=== PATIENT | female | born 1975 | race African-American/Black ===

== ENCOUNTER 2024-02-07 19:15 | Emergency (ER) | payer OTHER, SELFPAY ==
--- NOTE | ~2024-02-07 | XR_ITS ---
EXAMINATION: XR ABDOMEN KUB CLINICAL INDICATION: Abdominal discomfort. History of constipation. COMPARISON: None available. TECHNIQUE: AP view of the abdomen. FINDINGS: The bowel gas pattern is normal with no evidence of ileus or obstruction. There is retained stool within the right, transverse and descending colon. No unusual soft tissue calcifications are noted. The bones are unremarkable. XR/XR KUB IMPRESSION: 1. Nonobstructive bowel gas pattern. 2. Retained stool within the colon.
[2024-02-07 19:37] VITALS: BP 148/100; PULSE 89; RESP 18; TEMP 36.8; O2SAT 100; BMI 26.9
--- NOTE | 2024-02-07 19:39 | ED_ITS ---
[facility] - General Adult General Chief complaint: Chest Pain Stated complaint: chest,abd pain Time Seen by Provider: 02/07/24 22:16 Source: patient, family and educational interpreter Mode of arrival: ambulatory History of Present Illness ED Provider: Dr Funk [facility] narrative: This is a 48-year-old female without past medical history who presents with 2 weeks of epigastric/substernal chest discomfort that she describes as sharp in nature and whenever strong she feels short of breath and on my interview denied any sore throat/cough/fever/chills and denies any GI or symptoms. However it is noted that in the triage note patient described sore throat. Related Data Allergies Allergy/AdvReac Type Severity Reaction Status Date / Time No Known Allergies Allergy Verified 02/07/24 19:43 Review of Systems 2 Review of Systems: Pertinent positives and negatives as stated in [facility] Past Medical History Source: nursing notes reviewed Social History Social History Smoked in Last 30 Days: No Use of substances other than those prescribed or required for medical reasons: No Advance Directives: No Advance Directives Information Provided: Yes Do you have a plan to hurt others: No Plan Patient : No Physical Exam ED Vital Signs: Vital Signs - 24 hr 02/07/24 19:37 02/07/24 22:03 Temperature 98.3 F 97.8 F Pulse Rate 89 75 Respiratory Rate 18 20 Blood Pressure 148/100 H 147/85 H Pulse Oximetry 100 99 Oxygen Delivery Method Room Air Room Air BMI result Body Mass Index 26.9 VITAL SIGNS: Reviewed. GENERAL: Well developed, well nourished, in no acute distress. HEAD: Normocephalic/atraumatic EYES: PERRLA, EOMI EARS: Ext canals without abnormality, TMs non-bulging and non-erythematous NOSE: Nares patent bilateral OROPHARYNX: no oral lesions noted, posterior pharynx clear and non-erythematous without noted tonsillar enlargement/erythema/exudates NECK: Supple, no adenopathy LUNGS: Normal breath sounds. No adventitious sounds or accessory muscle use. SpO2<99> CARDIOVASCULAR: Regular rate and rhythm without noted murmurs ABDOMEN: Soft, epigastric discomfort, non-distended with bowel sounds. MUSCULOSKELETAL: No tenderness, deformities, or effusions noted on gross inspection. EXTREMITIES: No cyanosis, clubbing or edema. SKIN: Inspection of the skin reveals no rashes NEUROLOGIC: Alert and oriented x 4. Strength and sensation to light touch were grossly intact x 4. Course Course Course Narrative: This is a rapid medical exam completed by Rk ROLAND: Additional HPI, ROS, PE not included below will be deferred to primary provider. c/o epigastric pain radiating into the sternum with sore throat for greater than 2 weeks. Symptoms getting worse. Symptoms exacerbated by eating. Feels like her torso feels warm Creole speaking Medications Administered Discontinued Medications Generic Name Dose Route Start Last Admin Trade Name Freq PRN Reason Stop Dose Admin Acetaminophen 975 mg 02/08/24 00:47 02/08/24 00:50 Acetaminophen 325 Mg Tablet PO 02/08/24 00:48 975 mg ONCE ONE Administration Al Hydroxide/Mg Hydroxide 30 ml 02/07/24 23:00 02/07/24 23:08 Magnesium Hydrox/Alum Hydrox 30 Ml Oral.Susp PO 02/07/24 23:01 30 ml ONCE ONE Administration Lidocaine HCl 10 ml 02/07/24 23:00 02/07/24 23:08 Lidocaine Hcl Viscous 2 % 15 Ml Solution MUCOUS MEM 02/07/24 23:01 10 ml ONCE ONE Administration Potassium Chloride 60 meq 02/07/24 23:47 02/08/24 00:51 Potassium Chloride Er 20 Meq Tab.Er.Prt PO 02/07/24 23:48 60 meq ONCE ONE Administration Sucralfate 1 gm 02/07/24 23:00 02/07/24 23:08 Sucralfate Oral Suspension 1 Gm/10 Ml Oral.Susp PO 02/07/24 23:01 1 gm ONCE ONE Administration Medical Decision Making Medical Decision Making [facility] Narrative: 48-year-old female with history and clinical presentation, DDX: GERD/acid reflux/gastritis, lower clinical suspicion for infectious etiology such as cholecystitis, no history to suggest pancreatitis, and no suspicion for ACS or pneumonia. I reviewed all investigations and hematologic indices are negative for leukocytosis/anemia/thrombocytopenia. Chemistry indices demonstrate a low potassium that was repleted with 60 mEq of potassium chloride but no SHAWNA or liver enzyme deranged and high sensitivity troponin is undetectable. Urinalysis is negative for UTI or hematuria and viral testing is negative for influenza/RSV/COVID-19/strep pharyngitis. Patient treated with GI cocktail and Carafate, KUB does not demonstrate air- fluid levels. Radiology's reading the KUB as nonobstructive bowel-gas pattern with retained stool. On re-evaluation patient is feeling somewhat improved she is encouraged to go home and use [id number] MiraLax. She does have short follow-up with Dr. Holloway this coming week. Differential Diagnosis Differential Diagnoses: The differential diagnosis associated with the presentation includes Please see the discussion Admission/Observation Consideration of admission/observation: Escalation of care including admission/observation considered Please see the discussion above Lab Data MDM Lab Attestation statement: I reviewed the patient's lab results. Please see the discussion 02/07/24 20:01 02/07/24 20:01 Labs: Lab Results 02/07/24 02/07/24 02/07/24 Range/Units 20:01 22:10 22:22 WBC 8.1 (4.8-10.8) X10*3/uL RBC 4.40 (4.20-5.50) X10*6/uL Hgb 12.1 (12.0-16.0) g/dl Hct 37.4 (37.0-47.0) % MCV 85.0 (80.0-98.0) fL MCH 27.5 (27.0-33.0) pg MCHC 32.4 (31.0-35.0) g/dl RDW 13.2 (11.0-16.0) % Plt Count 283 (160-400) X10*3/uL MPV 10.0 (9.4-12.3) fL Immature Gran % (Auto) 0.2 (0.0-0.4) % Neut % (Auto) 44.9 L (45-73) % Lymph % (Auto) 45.8 H (20-40) % Wheeler % (Auto) 7.5 (2-11) % Eos % (Auto) 1.1 (0-4) % Baso % (Auto) 0.5 (0-2) % Lymph # (Auto) 3.7 (1.2-4.9) X10*3/uL Wheeler # (Auto) 0.6 (0.1-1.2) X10*3/uL Eos # (Auto) 0.1 (0.0-0.4) X10*3/uL Baso # (Auto) 0.0 (0.0-0.2) X10*3/uL Abs Immat Gran (auto) 0.02 (0.00-0.03) X10*3/uL Absolute Neuts (auto) 3.6 (2.0-8.3) x10*3/uL Absolute Nucleated RBC 0.000 (0.0-0.012) X10*3/uL Nucleated RBC % (auto) 0.0 (0.0-0.2) /100WBC Sodium 142 (135-145) mmol/L Potassium 3.0 L (3.3-5.1) mmol/L Chloride 110 H (96-108) mmol/L Carbon Dioxide 25 (22-29) mmol/L Anion Gap 10 L (12-20) BUN 4 L (9-16) mg/dL Creatinine 0.73 (0.5-1.4) mg/dL Estim Creat Clear Calc 95.8 Estimated GFR > 60 Random Glucose 153 H (60-115) mg/dL Calcium 9.8 (8.4-10.2) mg/dL Total Bilirubin 0.4 (0.0-1.0) mg/dL AST 14 (5-31) U/L ALT 8 (0-31) U/L Alkaline Phosphatase 79 (39-117) U/L Troponin I High Sens < 2.7 (<3.5-17.0) ng/L Total Protein 7.6 (6.5-8.0) g/dL Albumin 4.4 (3.5-5.0) g/dL Urine Color Yellow Urine Appearance Clear Urine pH 7.0 (5.0-9.0) Ur Specific [place] <= 1.005 (1.005-1.025) Urine Protein Negative (Neg-Trace) mg/dL Urine Glucose (UA) Negative (Negative) mg/dL Urine Ketones Negative (Negative) mg/dL Urine Blood Negative (Negative) Urine Nitrite Negative (Negative) Ur Leukocyte Esterase Negative (Negative) Urine RBC 0-2 (0-2) /HPF Urine WBC 0-5 (0-5) /HPF Ur Squamous Epith Cells 0-2 (0-2) /HPF Urine Bacteria None Seen (None Seen) Hyaline Casts 0-2 (0-2) /LPF Influenza Type A (PCR) NEGATIVE (Negative) Influenza Type B (PCR) NEGATIVE (Negative) RSV RNA Qual (PCR) NEGATIVE (Negative) SARS-CoV-2 RNA (RT-PCR) NEGATIVE (Negative) S. pyogenes GrpA JOSEPH Negative (Negative) Independent Interpretation I performed an independent interpretation of an: EKG Interpretation: Sinus rhythm, HR-99, no STEMI, [place]/QRS/QTC is within normal limits. Radiology Impression Discussion of test interpretation with radiology: I have reviewed the radiologist's reading. Radiologist Impression: Please see the discussion above Critical Care Time Critical Care Time Critical Care Time: Yes Total Critical Care Time: 45 Attestation: I personally attest to this time spent taking care of the patient. Discharge Plan Discharge Clinical Impression: Atypical chest pain, Hypokalemia, Gastritis Instructions: Hypokalemia (ED), Potassium Content of Foods List (ED), Constipation (ED) Additional Instructions: Follow-up with Dr. Holloway as scheduled. Recommend [id number] MiraLax as needed for constipation. Recommend Pepcid, this is available [id number], 20 mg, every morning. Return to the emergency room for any worsening of symptoms. Print Language: Bruna Martin
--- NOTE | 2024-02-07 19:41 | ECG_ITS ---
Test Reason : EPIGASTRIC PAIN Blood Pressure : / mmHG Vent. Rate : 099 BPM Atrial Rate : 099 BPM P-R Int : 204 ms QRS Dur : 086 ms QT Int : 348 ms P-R-T Axes : 061 025 030 degrees QTc Int : 446 ms Normal sinus rhythm Possible Left atrial enlargement Borderline ECG No previous ECGs available Referred By: Ania Florian Electronically Signed By:Juan Antonio Bella
[2024-02-07 20:03] LABS: MANUAL DIFF FLAG NO
[2024-02-07 20:04] LABS: Basophils Percent Auto 0.5 % (0-2); Eosinophils Absolute Auto 0.1 X10*3/uL (0.0-0.4); Eosinophils Percent Auto 1.1 % (0-4); Hematocrit 37.4 % (37.0-47.0); Hemoglobin 12.1 g/dl (12.0-16.0); Imm Gran Abs Auto 0.02 X10*3/uL (0.00-0.03); Imm Gran Pct Auto 0.2 % (0.0-0.4); Lymphocytes Absolute Auto 3.7 X10*3/uL (1.2-4.9); Lymphocytes Percent Auto 45.8 % (20-40); Mean Corpuscular HGB Conc 32.4 g/dl (31.0-35.0); Mean Corpuscular Hemoglobin 27.5 pg (27.0-33.0); Monocytes Absolute Auto 0.6 X10*3/uL (0.1-1.2); Monocytes Percent Auto 7.5 % (2-11); Neutrophils Absolute Auto 3.6 x10*3/uL (2.0-8.3); Neutrophils Percent Auto 44.9 % (45-73); Platelet Count 283 X10*3/uL (160-400); Red Cell Distribution Width 13.2 % (11.0-16.0); White Blood Count 8.1 X10*3/uL (4.8-10.8)
[2024-02-07 20:31] LABS: Alanine Aminotransferase 8 U/L (0-31); Albumin Level 4.4 g/dL (3.5-5.0); Alkaline Phosphatase 79 U/L (39-117); Anion Gap 10 (12-20); Aspartate Amino Transferase 14 U/L (5-31); Bilirubin Total 0.4 mg/dL (0.0-1.0); Blood Urea Nitrogen 4 mg/dL (9-16); Calcium 9.8 mg/dL (8.4-10.2); Carbon Dioxide 25 mmol/L (22-29); Chloride 110 mmol/L (96-108); Creatinine Clr Calc Pharmacy 95.8; Estimated Glomerular Filt Rate > 60; Glucose Random 153 mg/dL (60-115); Sodium 142 mmol/L (135-145); Total Protein 7.6 g/dL (6.5-8.0)
[2024-02-07 20:42] LABS: Troponin-I High Sensitivity < 2.7 ng/L (<3.5-17.0)
[2024-02-07 22:03] VITALS: BP 147/85; PULSE 75; RESP 20; TEMP 36.6; O2SAT 99
--- NOTE | 2024-02-07 22:14 | PC.NURSE ---
pt from home a&ox4, respirations even and unlabored. pt reporting x2 weeks of epigastric pain radiating into mid chest, reports increasing shortness of breath and throat pain. pt throat appears to be not red and pt is able to swallow. reports reduced food and water intake due to pain. pt normal sinus on tele 65-69bpm. pt swabbed at this time.
[2024-02-07 22:28] LABS: Appearance Urine Clear; Color Urine Yellow; Glucose Urine UA Negative (Negative); Leukocyte Esterase Urine Negative (Negative); Nitrite Urine Negative (Negative); Specific Gravity - Urine <= 1.005 (1.005-1.025); Urine Blood Negative (Negative); Urine Ketones Negative (Negative); Urine Protein Negative (Neg-Trace)
[2024-02-07 22:30] LABS: Bacteria Urine None Seen (None Seen); Hyaline Casts Urine 0-2 /LPF (0-2); RBC Urine 0-2 /HPF (0-2); Squamous Epithelial Cell Urine 0-2 /HPF (0-2); WBC Urine 0-5 /HPF (0-5)
[2024-02-07 22:36] LABS: IDNOW Serial# 6674DD1D; Strep A Nucleic Acid Negative (Negative)
[2024-02-07 22:59] LABS: Influenza A PCR NEGATIVE (Negative); Influenza B PCR NEGATIVE (Negative); Resp Syncy Virus RNA Qual PCR NEGATIVE (Negative); SARS COV2 PCR INHOUSE NEGATIVE (Negative)
[2024-02-07] MEDS: Lidocaine HCl Viscous 2 % 15 ML SOLUTION 10 ML MUCOUS MEM (23:08)
[2024-02-07] MEDS: Magnesium Hydrox/Alum Hydrox 30 ML ORAL.SUSP PO (23:08)
[2024-02-07] MEDS: Sucralfate Oral Suspension 1 GM/10 ML ORAL.SUSP PO (23:08)
[2024-02-08] MEDS: Acetaminophen 325 MG TABLET 975 MG PO (00:50)
[2024-02-08] MEDS: Potassium Chloride ER 20 MEQ TAB.ER.PRT 60 MEQ PO (00:51)
--- NOTE | 2024-02-08 00:57 | PC.NURSE ---
pt mediated per mar, tolerated well with water.
[2024-02-08 01:28] VITALS: BP 146/86; PULSE 75; RESP 18; TEMP 36.7; O2SAT 98
== END 2024-02-08 01:32 | disposition home or self-care (01) ==
PROVIDERS: Nurse Practitioner Family; Emergency Provider Student in an Organized Health Care Education/Training Program; PCP Internal Medicine
DX: R07.89 Other chest pain (principal); R10.13 Epigastric pain; E87.6 Hypokalemia; K29.70 Gastritis, unspecified, without bleeding; Z03.818 Encounter for observation for suspected exposure to other biological agents ruled out; Z79.899 Other long term (current) drug therapy
CPT/HCPCS: 0241U; 36415; 74018; 80053; 81001; 84484; 85025; 87651; 93005; 99283; 99285

== ENCOUNTER → 2024-02-07 19:41 | Outpatient (BNV) | payer OTHER, SELFPAY | PROVIDERS: Emergency Provider Student in an Organized Health Care Education/Training Program; PCP Internal Medicine; Visit Provider Internal Medicine Cardiovascular Disease | DX: R10.13 Epigastric pain (principal) | CPT/HCPCS: 93010 ==

== ENCOUNTER 2025-04-18 11:03 | Outpatient (AMB) | payer OTHER, SELFPAY ==
[2025-04-18 12:24] VITALS: BP 108/80; PULSE 69; RESP 16; TEMP 36.8; O2SAT 96; BMI 27.0
--- NOTE | 2025-04-18 12:24 | MHC.OFFWIV ---
Intake Vital Signs 04/18/25 12:24 Height 5 ft 6 in Weight 167 lb BMI 27.0 BP 108/80 Blood Pressure Location Lt brachial Position Sitting Respiration 16 Pulse 69 Pulse Source Pulse Oximeter Temp 98.2 F Temp Source Oral Pulse Oximetry (%) 96 Oxygen Delivery Method Room Air Intake Visit Reasons: EP-Chest pain, sore throat Intake Note: Pt is here today c/o chest pain x1mo ago & c/o acid reflux Patient Tobacco Use Status: Never used Tobacco Allergies No Known Allergies Allergy (Verified 04/18/25 12:25) HPI HPI Comments History of Present Illness Details History - The patient is a 49-year-old female presenting with chest pain radiating to the throat. - The sharp, central chest pain radiates to her throat has been occurring intermittently for a month, with a similar episode last year diagnosed and treated as reflux. - Denies abdominal pain, bloating or excessive burping. - She does not eat alcohol. - Previous treatment included a GI cocktail and potassium, with negative cardiac enzymes. - The patient reports occasional constipation and suspects hemorrhoids due to straining. - An ovarian cyst is suspected, though the patient does not currently follow with an COMPLETION MANAGER. Physical Exam General: Cooperative, healthy appearing, comfortable, no acute distress and well developed Orientation: Patient oriented x3 Limitations: No limitations Head: Normal to inspection Ears: Hearing grossly normal bilaterally Nose: Normal External nose present Face and sinus: Normal facial exam Mouth: normal, moist oral mucosa Eyes: Appearance normal, both eyes and all related structures Neck: Normal visual inspection and Yes full ROM Respiratory: Normal respiratory effort and able to speak in complete sentences. Skin: no rashes or lesions noted Neuro: Patient oriented x3 Extremities: moving all extremities normally [facility] Social History Patient Tobacco Use Status: Never used Tobacco Review of Systems Const All systems reviewed & are unremarkable except as noted in HPI and below Physical Exam Vital Signs: Last Vital Signs Temp 98.2 F 04/18/25 12:24 Pulse 69 04/18/25 12:24 Resp 16 04/18/25 12:24 BP 108/80 04/18/25 12:24 Pulse Ox 96 04/18/25 12:24 Oxygen Delivery Method Room Air 04/18/25 12:24 BMI result Body Mass Index 27.0 Assessment & Plan Assessment & Plan (1) GERD (gastroesophageal reflux disease): Code(s): K21.9 - Gastro-esophageal reflux disease without esophagitis Qualifiers: Esophagitis bleeding: without hemorrhage Plan: Plan Patient was informed and verbally consented to the use of an ambient scribe for clinic note documentation during this visit Gastroesophageal Reflux Disease (Gerd) - Initiate omeprazole 20 mg daily for one month, starting with two pills daily for the first week, then reducing to one pill daily. - Advise dietary modifications to avoid high-acid foods such as tomatoes, spicy foods, and carbonated beverages. - Needs to establish care with a new PCP, gave information on PCP's at [address] [place] [address] - Follow-up appointment recommended with new PCP if symptoms persist or worsen. Medications: New omeprazole take 30-60 minutes prior to meals 20 mg PO QAM 30 caps 0RF Coding Level of Care Code Est Pt Level 3 (96151) Diagnoses GERD (gastroesophageal reflux disease) K21.9 Esophagitis bleeding: without hemorrhage
== END 2025-04-18 13:05 | disposition home or self-care (01) ==
PROVIDERS: PCP Internal Medicine; Visit Provider Physician Assistant
DX: K21.9 Gastro-esophageal reflux disease without esophagitis (principal)

== ENCOUNTER → 2025-04-18 11:03 | Outpatient (BNVA) | payer OTHER, SELFPAY | PROVIDERS: PCP Internal Medicine; Visit Provider Physician Assistant | DX: K21.9 Gastro-esophageal reflux disease without esophagitis (principal); R07.9 Chest pain, unspecified | CPT/HCPCS: 99212 ==

== ENCOUNTER 2025-04-30 14:10 | Outpatient (AMB) | payer OTHER, SELFPAY ==
[2025-04-30 14:13] VITALS: BP 120/76; PULSE 91; TEMP 36.2; O2SAT 99; BMI 27.1
--- NOTE | 2025-04-30 14:13 | MHC.PC.OV ---
Vital Signs 04/30/25 14:13 Height 5 ft 6 in Weight 168 lb BMI 27.1 BP 120/76 Blood Pressure Location Rt brachial Position Sitting Pulse 91 Pulse Source Pulse Oximeter Temp 97.1 F Temp Source Temporal Artery Scan Pulse Oximetry (%) 99 Oxygen Delivery Method Room Air Intake Visit Reasons: New Patient Assistant [employer] Required: No Accompanied by: Daughter Allergies No Known Allergies Allergy (Verified 04/30/25 14:16) Medication List - Last Reconciled 04/30/25 by DEVON Bah pantoprazole 20 mg PO BID sennosides (Natural Senna Laxative) 17.2 mg (2 x 8.6 mg) PO BEDTIME Tobacco use date assessed: 04/30/25 Dental Screening Dental Screen Date: 04/30/25 Did you have a dental visit in the last 12 months?: Yes Did you have a dental problem in the last 6 months where you did not have access to dental care?: No HPI HPI Comments History of Present Illness Details The patient is a 49-year-old female presenting with gastrointestinal discomfort and visual disturbances. The gastrointestinal discomfort began approximately one week ago and is characterized by pain that worsens with movement rather than eating. She was seen at on 04/18 The patient has been taking omeprazole for a week with minimal improvement. Additionally, the patient experiences constipation, which is described as difficult bowel movements without any current treatment. The patient also reports visual disturbances, including difficulty reading and intermittent itching of the eyes, which started about a week ago. These symptoms occur on and off and are accompanied by a sensation of warmth in the eyes. [facility] Medical History (Updated 05/03/25 @ 09:20 by DEVON Bah) Decreased visual acuity Health care maintenance RUQ abdominal pain Family History (Updated 04/30/25 @ 14:17 by Karla Gallegos MA) Mother No problems noted. Father No problems noted. Social History Housing: Apartment Patient Tobacco Use Status: Never used Tobacco e-Cigarette/Vaping Use: Never Used service: No Current occupational status: unemployed Cognitive needs: No Hearing needs: No Vision needs: No Questionnaire PHQ-9 Over the last 2 weeks, how often have you been bothered by any of the following problems? 1. Little interest or pleasure in doing things: not at all 2. Feeling down, depressed, or hopeless: not at all 3. Trouble falling or staying asleep, or sleeping too much: not at all 4. Feeling tired or having little energy: not at all 5. Poor appetite or overeating: not at all 6. Feeling bad about yourself - or that you are a failure or have let yourself or your family down: not at all 7. Trouble concentrating on things, such as reading the newspaper or watching television: not at all 8. Moving or speaking so slowly that other people could have noticed. Or the opposite - being so fidgety or restless that you have been moving around a lot more than usual: not at all 9. Thoughts that you would be better off or of hurting yourself in some way: not at all Total score: 0 Source: Developed by Drs. Yobany Rivers, Andree Nieto, Geovanny Morris and colleagues, with an educational felicity from [employer]. Thrive Questionnaire Date Thrive assessed: 04/30/25 I am a: Patient Within the past 12 months, did the food you bought not last and you didn't have the money to get more?: Never true Within the past 12 months, did you worry whether your food would run out before you got money to buy more?: Never true Do you have trouble paying for medicines?: No Do you have trouble getting transportation to medical appointments?: No Do you have trouble paying your heating and electricity bill?: No Do you have trouble taking care of your child, family member or friend?: No Do you have trouble with day-to-day activities such as bathing, preparing meals, shopping, managing finances, etc.?: No Are you currently unemployed and looking for a job?: No Are you interested in more education?: No THRIVE Score: 0 AUDIT C Alcohol Use Questionnaire (AUDIT-C) 1. How often do you have a drink containing alcohol?: Never 3. How often do you have six or more drinks on one occasion?: Never Total Score: 0 SARKIS-7 AMB Questionnaire SARKIS-7 Date SARKIS - 7 assessed: 04/30/25 Feeling nervous, anxious, or on edge: 0 = Not at all Not being able to stop or control worryin = Not at all Worrying too much about different things: 0 = Not at all Trouble relaxin = Not at all Being so restless that it is hard to sit still: 0 = Not at all Becoming easily annoyed or irritable: 0 = Not at all Feeling afraid as if something awful might happen: 0 = Not at all Total SARKIS-7 score (0-4 normal; 5-9 mild; 10-14 moderate; 15-21 severe): 0 Source: Developed by Drs. Yobany Rivers, Andree Nieto, Geovanny Morris and colleagues, with an educational felicity from [employer]. Review of Systems Const Details: CONSTITUTIONAL Negative HEAD/NECK Reports difficulty reading, intermittent itching, and warmth in the eyes with prolonged reading, no drainage EAR/NOSE/MOUTH/THROAT Negative RESPIRATORY Negative CARDIOVASCULAR Negative GASTROINTESTINAL Reports upper abdominal pain that worsens with movement, constipation NEUROLOGICAL Negative PSYCHIATRIC Negative Physical exam (Primary Care) Vital Signs: Last Vital Signs Temp 97.1 F 04/30/25 14:13 Pulse 91 04/30/25 14:13 BP 120/76 04/30/25 14:13 Pulse Ox 99 04/30/25 14:13 Oxygen Delivery Method Room Air 04/30/25 14:13 BMI result Body Mass Index 27.1 GENERAL Well developed, Well nourished, in no apparent distress HEENT Head-Normocephalic Eyes- PERRLA, EOMI, Conjuctiva clear, lids WNL Ears- Canals clear, TMs WNL Mouth/Throat-No lesions, no erythema, no exudate Neck- Supple, No lymphadenopathy, thyroid WNL RESPIRATORY Normal I:E, Clear to auscultation CARDIOVASCULAR Regular, rate and rhthym, No murmurs or rubs GASTROINTESTINAL Soft, tender in upper abdomen, not guarding or rebound, normal bowel sounds, no masses NEUROLOGICAL Gait normal PSYCHIATRIC Oriented to person, place and time Mood and affect WNL Appearance WNL Speech WNL Thought processes WNL Tobacco/Smoking Status: Tobacco use Status Tobacco use date assessed 04/30/25 04/30/25 14:18 Patient Tobacco Use Status Never used Tobacco 04/30/25 14:18 e-Cigarette/Vaping Use Never Used 04/30/25 14:18 PHQ-9: PHQ-9 Score PHQ-9: Total score 0 09/10/25 14:15 Thrive Assessment: Date of Thrive Assessment Date Thrive assessed 04/30/25 04/30/25 14:18 Coding Level of Care Code Established Pt Est Pt Level 4 (87439) Patient Type Established Diagnoses Epigastric pain R10.13 Slow transit constipation K59.01 Constipation type: slow transit constipation Decreased visual acuity H54.7 Health care maintenance Z00.00 Time Spent (min) 35 Comment Time spent on Chart review, H&P, patient education and placing orders Assessment & Plan Assessment & Plan (1) Epigastric pain: Code(s): R10.13 - Epigastric pain Plan: The patient has been experiencing gastrointestinal discomfort for about a week, with pain exacerbated by movement rather than eating. She has been on omeprazole with minimal improvement, and a switch to pantoprazole is planned. An ultrasound is recommended to evaluate the gallbladder. Labs will be ordered. Patient to follow up in 3-4 weeks or sooner if symptoms persist or worsen. (2) Constipation: Code(s): K59.00 - Constipation, unspecified Qualifiers: Constipation type: slow transit constipation Qualified Code(s): K59.01 - Slow transit constipation Plan: The patient reports constipation characterized by difficult bowel movements without current treatment. Senna is prescribed to be taken at bedtime, and the patient is advised to increase water intake. Patient to follow up in 3-4 weeks or sooner if symptoms persist or worsen. (3) Decreased visual acuity: Code(s): H54.7 - Unspecified visual loss Category: Medical Plan: The patient reports visual disturbances, including difficulty reading and intermittent itching of the eyes, which started about a week ago. A referral to an crate liner is recommended for further evaluation. (4) Health care maintenance: Code(s): Z00.00 - Encounter for general adult medical examination without abnormal findings Category: Medical Plan: - Referral for colonoscopy for colon cancer screening - Referral for mammogram - Referral for gynecological examination Plan I discussed with the patient the plan to switch her medication from omeprazole to pantoprazole to better manage her gastrointestinal symptoms. We also talked about the need for an ultrasound to assess her gallbladder and the importance of increasing water intake to help with constipation. I recommended referrals for a colonoscopy, mammogram, and ophthalmology consultation to address her visual disturbances. Orders: Orders Comprehensive Met. Panel 04/30/25 R10.11 - Right upper quadrant pain, Z00.00 - Encounter for general adult medical examination without abnormal findings TSH reflex Free T4 04/30/25 Z00.00 - Encounter for general adult medical examination without abnormal findings Vitamin D 25-OH Total 04/30/25 Z00.00 - Encounter for general adult medical examination without abnormal findings Complete Blood Count Auto Diff 04/30/25 R10.11 - Right upper quadrant pain, Z00.00 - Encounter for general adult medical examination without abnormal findings Lipid Panel 04/30/25 Z13.220 - Encounter for screening for lipoid disorders MM screening mammo BI 04/30/25 Z12.31 - Encounter for screening mammogram for malignant neoplasm of breast US abdomen limited 04/30/25 R10.11 - Right upper quadrant pain Referrals [facility]ER Referral Z00.00 - Encounter for general adult medical examination without abnormal findings Open Access Screening Colonoscopy Referral Z12.11 - Encounter for screening for malignant neoplasm of colon, Z12.12 - Encounter for screening for malignant neoplasm of rectum Optometry Referral H54.7 - Unspecified visual loss Medications: New pantoprazole 20 mg PO BID 180 tabs 0RF for gastritis sennosides (Natural Senna Laxative) with plenty of fluids 17.2 mg (2 x 8.6 mg) PO BEDTIME 180 tabs 1RF for constipation Scribe Plan - Not visible on output: - Take pantoprazole as prescribed, twice daily. - Take Luann at bedtime for constipation relief. - Drink plenty of water daily. - Follow up in 4-6 weeks to evaluate the effectiveness of the treatment and review ultrasound results. - Attend scheduled referrals for colonoscopy, mammogram, and ophthalmology consultation.
== END 2025-04-30 14:35 | disposition home or self-care (01) ==
LOC: HO.HMCHD 14:10
PROVIDERS: PCP Internal Medicine; Visit Provider Physician Assistant Medical
DX: R10.13 Epigastric pain (principal); K59.01 Slow transit constipation; H54.7 Unspecified visual loss; Z00.00 Encounter for general adult medical examination without abnormal findings

== ENCOUNTER → 2025-04-30 14:10 | Outpatient (BNVA) | payer OTHER, SELFPAY | PROVIDERS: PCP Internal Medicine; Visit Provider Physician Assistant Medical | DX: Z00.00 Encounter for general adult medical examination without abnormal findings (principal); R10.13 Epigastric pain; K59.01 Slow transit constipation; H54.7 Unspecified visual loss; Z13.31 Encounter for screening for depression; Z13.39 Encounter for screening examination for other mental health and behavioral disorders | CPT/HCPCS: 99212 ==